=== PATIENT | male | born 1970 | race Two or more races ===

== ENCOUNTER 2017-01-31 13:36 | Emergency (ER) | payer MEDICAID ==
[~2017-01-31] VITALS: Ht 177.8 cm; Wt 78.9 kg
[2017-01-31 13:36] VITALS: BP 117/78
--- NOTE | 2017-01-31 14:23 | NUR ---
IV removed. Catheter intact and site benign. Pressure and 4x4 applied to site. No bleeding noted.Patient discharged to home in stable condition. Written and verbal after care instructions given. Patient verbalizes understanding of instruction.
== END 2017-01-31 14:40 | disposition home or self-care (01) ==
LOC: ER 13:38
DX: G40.909 Epilepsy, unspecified, not intractable, without status epilepticus (principal)
CPT/HCPCS: 99283; A4606; Z7610